=== PATIENT | female | born 1960 | race Caucasian/White ===

== ENCOUNTER 2016-08-27 06:26 | Inpatient (IN) | payer OTHER ==
[2016-07-29 14:35] LABS: BASO % 0.5 %; BASO ABS # 0.02 K/uL (0-0.2); COMPLETE YES; EOS % 1.6 %; HEMATOCRIT 38.3 % (37-47); LYMPH % 42.4 %; LYMPH ABS # 1.88 K/uL (1.2-3.4); MEAN CELL VOLUME 87.6 fL (80-100); MEAN CORPUSCULAR HEMOGLOBIN 30.4 pg (25-34); MEAN CORPUSCULAR HGB CONC 34.7 g/dl (32-36); MEAN PLATELET VOLUME 9.8 fL (7.4-10.4); MONO % 4.7 %; NEUT % 50.8 %; PLATELET COUNT 262 K/uL (130-400); RED BLOOD COUNT 4.37 M/uL (4.2-5.4); WHITE BLOOD COUNT 4.43 K/uL (4.8-10.8)
[2016-07-29 14:39] LABS: URINE APPEARANCE CLEAR (CLEAR); URINE BILIRUBIN NEG (NEG); URINE COLOR DK YELLOW; URINE NITRITE NEG (NEG); URINE PH 5.5 (4.5-7.5); URINE SPECIFIC GRAVITY 1.027 (1.000-1.030); UROBILINOGEN NEG (NEG); ZZUR CULT IF INDIC CLEAN CATCH NO
[2016-07-29 14:47] LABS: MANUAL MICROSCOPIC REQUIRED? NO; REVIEW REQ? NO
[2016-07-29 14:48] LABS: PARTIAL THROMBOPLASTIN RATIO 1.1; PROTHROMBIN TIME (PATIENT) 10.7 SECONDS (9.0-12.0)
[2016-07-29 15:16] LABS: BLOOD UREA NITROGEN 19 mg/dl (7-18); BUN/CREATININE RATIO 19.3 (10-20); CALCIUM 9.3 mg/dl (8.5-10.1); CARBON DIOXIDE 25 mmol/L (21-32); CHLORIDE 105 mmol/L (98-107); CREATININE 0.97 mg/dl (0.60-1.20); GLUCOSE 86 mg/dl (70-99); SODIUM 141 mmol/L (136-145)
[2016-08-21 15:23] VITALS: BMI 31.0
--- NOTE | 2016-08-26 18:24 | HISTORY & PHYSICAL EXAMINATION ---
DATE OF ADMISSION: 08/27/2016 CHIEF COMPLAINT: Chronic left knee pain. HISTORY OF PRESENT ILLNESS: This is a 56-year-old female, patient of Dr. Keller'angie complaining of chronic left knee pain, longstanding, now progressively getting worse. The patient has been diagnosed with end-stage osteoarthritis, per clinical and radiographic exams. The patient has failed conservative treatment including intraarticular injections, anti-inflammatories and the use of a brace as well as narcotic medication. The patient has increased pain with weightbearing activities and her pain does interfere with her activities of daily living. PAST MEDICAL HISTORY: The patient is a healthy 56-year-old female. She has no heart problems, lung problems, diabetes or cancer history. SOCIAL HISTORY: Nonsmoker, nondrinker. PAST SURGICAL HISTORY: Left shoulder surgery, back surgery, right shoulder surgery and right knee surgery. FAMILY HISTORY: Noncontributory. REVIEW OF SYSTEMS: The patient complains of chronic left knee pain, otherwise denies any shortness of breath, chest pain, nausea, vomiting or any other joint complaints. MEDICATIONS: Citalopram 40 mg daily. ALLERGIES: No known drug allergies. PHYSICAL EXAMINATION: GENERAL: Well-developed, well-nourished 56-year-old female in no acute distress. She is alert and oriented x3 and pleasant. HEENT: Normocephalic, atraumatic. Extraocular motions are intact. Pupils are equal and reactive to light. HEART: Regular rate and rhythm, no murmurs appreciated. LUNGS: Clear. ABDOMEN: Soft and nontender, bowel sounds are present. EXTREMITIES: Left knee reveals 0-130 degrees of range of motion. She has a neutral alignment. She has medial joint line tenderness with crepitation, with passive range of motion. Her knee is stable. She has 5/5 strength. NEUROLOGIC: Neurovascularly, she is intact in her left lower extremity. DIAGNOSIS: Left knee end-stage osteoarthritis. Otherwise, a healthy 56-year-old female with no heart, lungs or diabetes history. PLAN: The patient was advised of her diagnosis. Indications, risks, benefits, postop course have all been reviewed. The patient wishes to proceed with a left total knee arthroplasty. Necessary consent forms, preoperative testing and clearances will be obtained.
[~2016-08-27] VITALS: Ht 157.5 cm; Wt 83.0 kg
[2016-08-27] VITALS (7 sets, daily range): BP systolic 99–124; BP diastolic 61–81; PULSE 65–96; TEMP 36.5–36.6; O2SAT 93–98; Ht 157.5 cm; Wt 83.0 kg
[~2016-08-27 06:26] MED LIST: ACETAMINOPHEN 500 MG TAB PO SCH; CEFAZOLIN 1000MG/55 ML D5W 55 ML IV SCH; CITA40TA12 PO; CeleBREX 200 MG CAP PO SCH; DEXAMETHASONE 4 MG TAB PO SCH; FAMOTIDINE 20 MG TAB PO SCH; GABAPENTIN 300 MG CAP PO SCH; LACTATED RINGER'S 1000ML 1,000 ML IV SCH; LACTATED RINGER'S 1000ML 500 ML IV ONE; LACTATED RINGER'S 1000ML IV SCH; LAMO100T16 PO; METOCLOPRAMIDE HCL 10 MG TAB PO SCH; ROPIVACAINE 5MG/ML 30 ML 150 MG, BUPIVACAINE/EPINEPHR 0.5% MPF 30 ML, KETOROLAC TROMETH... INFIL SCH
--- NOTE | 2016-08-27 06:54 | History & Physical Bridge Note ---
H&P Re-Evaluation Bridge Note: I have examined the patient, reviewed the History & Physical and in the interval since the performance of the History & Physical I have noted the following changes of clinical significance: No changes noted
[2016-08-27] MEDS ORDERED: MIDAZOLAM HCL 1 MG/ML 2ML VIAL ONE (06:58)
[2016-08-27] MEDS ORDERED: FENTANYL CITRATE INJ 50 MCG/1 ML 2 ML VIAL ONE (06:59)
[2016-08-27] MEDS ORDERED: BUPIVACAINE 0.25% 30 ML VIAL ONE (07:22)
[2016-08-27] MEDS ORDERED: FENTANYL CITRATE INJ 50 MCG/1 ML 2 ML VIAL IV PRN (07:30)
[2016-08-27] MEDS ORDERED: EpHEDrine SULFATE INJ 50 MG/ML AMP IV PRN (07:30)
[2016-08-27] MEDS ORDERED: ATROPINE SULFATE 0.1 MG/ML 5ML SYR IV PRN (07:30)
[2016-08-27] MEDS ORDERED: ONDANSETRON INJ 2 MG/ML 2 ML VIAL IV PRN ×2 (07:30→11:45)
[2016-08-27] MEDS ORDERED: BUPIVACAINE 0.5 % 5 MG/1 ML PF 10ML VIAL ONE (08:55)
[2016-08-27] MEDS ORDERED: ORTHO JOINT ANESTHETIC ONE (09:01)
[2016-08-27] MEDS ORDERED: BACITRACIN 50000 UNIT VIAL ONE (09:01)
[2016-08-27] MEDS ORDERED: POVIDONE-IODINE OP SOLN 30 ML BTL ONE (09:01)
[2016-08-27] MEDS: TRANEXAMIC ACID INJ 1,000 MG in SODIUM CHLORIDE 0.9% 100ML 100 ML IV SCH ×2 (09:11→13:45)
--- NOTE | 2016-08-27 11:03 | [facility] Operative Report ---
Operative Report Operative Date Aug 27, 2016. Pre-Operative Diagnosis Left knee end-stage osteoarthritis Post-Operative Diagnosis same Procedure(s) Performed left total knee replacement Surgeon Dr. Keller Well Drill Operator Cable Tool Surgeon(s) Abhilash Reina PA-C Estimated Blood Loss 5CC Findings end stage djd varus grade 4 medial and grade 3 medial Specimens A: Left knee bone and tissue Drains 2 hemovac Anesthesia spinal sedation orthomix Complication(s) None Disposition Recovery Room / PACU Indications end stage djd oa bilateral knees I attest to the content of the Intraoperative Record and any orders documented therein. Any exceptions are noted below.
[2016-08-27] MEDS ORDERED: GLYCOPYRROLATE INJ 0.2 MG/ML VIAL ONE (11:18)
[2016-08-27] MEDS ORDERED: LIDOCAINE HCL 2% 2 ML VIAL (20MG/ML) ONE (11:18)
[2016-08-27] MEDS ORDERED: PROPOFOL IV EMULSION 10 MG/ML 20 ML VIAL IV ONE (11:18)
[2016-08-27] MEDS ORDERED: BACITRACIN 50,000 UNITS IR ONE (11:22)
[2016-08-27] MEDS ORDERED: MAGNESIUM HYDROXIDE SUSP 30 ML UDC PO PRN (11:45)
[2016-08-27] MEDS ORDERED: DiphenhydrAMINE HCL 50 MG/ML VIAL IV PRN (11:45)
[2016-08-27] MEDS ORDERED: MoRPHine SULFATE 2 MG/ML CARP IV PRN (11:45)
[2016-08-27] MEDS ORDERED: BISACODYL 10 MG SUPP PR PRN (11:45)
[2016-08-27] MEDS ORDERED: ALUMINUM/MAGNESIUM/SIMETH (MAALOX MAX) 30 ML UDC PO PRN (11:45)
[2016-08-27] MEDS ORDERED: ZOLPIDEM TARTRATE 5 MG TAB PO PRN (11:45)
--- NOTE | 2016-08-27 12:10 | DIAGNOSTIC IMAGING REPORT ---
LEFT KNEE 1 OR 2 VIEWS ROUTINE CLINICAL HISTORY: AP/LATERAL IN PACU LEFT KNEE joint replacement COMPARISON: None. DISCUSSION: Status post total left knee replacement. Good contact between prosthetic and underlying bone. Surgical drains are in position. Expected soft tissue postoperative change IMPRESSION: Anatomic alignment status post total left knee replacement Electronically signed by: Ronen Wayne M.D. 08/27/2016 12:09 PM Dictated Date/Time: 08/27/2016 12:09 PM
--- NOTE | 2016-08-27 12:55 | Anesthesiology Progress Note ---
Anesthesia Post Op Note Date & Time Aug 27, 2016 at 12:55 Vital Signs Pain Intensity: 0 Vital Signs Past 12 Hours Date Time Temp Pulse Resp B/P Pulse Ox O2 Delivery O2 Flow Rate FiO2 08/27/16 12:28 73 16 99 08/27/16 12:28 73 16 08/27/16 12:25 94/53 08/27/16 12:23 74 16 08/27/16 12:23 37.1 08/27/16 12:23 72 16 99 08/27/16 12:20 98/52 08/27/16 12:18 77 13 99 08/27/16 12:18 76 13 08/27/16 12:17 75 17 08/27/16 12:17 76 17 99 08/27/16 12:15 94/58 08/27/16 12:12 82 20 08/27/16 12:12 83 20 100 08/27/16 12:10 96/52 08/27/16 12:07 75 15 99 08/27/16 12:07 75 15 08/27/16 12:05 92/55 08/27/16 12:02 76 19 08/27/16 12:02 77 19 99 08/27/16 12:01 76 15 08/27/16 12:01 76 15 99 08/27/16 12:00 92/59 08/27/16 11:56 78 14 100 08/27/16 11:56 76 14 08/27/16 11:55 98/57 08/27/16 11:51 73 21 08/27/16 11:51 74 21 100 08/27/16 11:50 107/65 08/27/16 11:46 76 14 08/27/16 11:46 77 14 100 08/27/16 11:45 85/46 08/27/16 11:41 81 13 97/47 100 08/27/16 11:41 81 13 08/27/16 11:40 89/49 08/27/16 11:36 84 18 98/50 97 08/27/16 11:36 84 18 08/27/16 11:36 37.2 85 16 98/50 97 Mask 10 08/27/16 06:56 36.5 65 18 124/81 97 Room Air Notes Mental Status: alert / awake / arousable, participated in evaluation Pt Amnestic to Procedure: Yes Nausea / Vomiting: adequately controlled Pain: adequately controlled Airway Patency, RR, SpO2: stable & adequate BP & HR: stable & adequate Hydration State: stable & adequate Neuraxial Anesthesia: was administered, sensory block is resolving Anesthetic Complications: no major complications apparent
[2016-08-27] MEDS: D5W AND 1/2NSS + 20MEQ KCL 1,000 ML IV SCH ×2 (13:44→22:54)
[2016-08-27] MEDS: FERROUS GLUCONATE 324 MG TAB PO SCH ×2 (13:44→17:17)
[2016-08-27] MEDS ORDERED: MoRPHine SULFATE 4 MG/ML 1 ML CARP\\VIAL IV PRN (13:45)
[2016-08-27] MEDS ORDERED: MoRPHine SULFATE 10 MG/ML CARP/VIAL IV PRN (13:45)
[2016-08-27] MEDS: ACETAMINOPHEN 500 MG TAB PO SCH ×2 (13:56→21:28)
--- NOTE | 2016-08-27 13:57 | Medical Consult ---
Consultation Date of Consultation: Aug 27, 2016. Attending Physician: Lion Keller M.D. Reason for Consultation: medical mgmt History of Present Illness This is a 56 y/o female with PMHx as outlined below who presents POD 0 s/p L TKA performed by Dr. Keller. Pt is doing well postoperatively. She currently denies any pain. Pt denies chest pain, SOB, abd pain, N/V, bowel or bladder issues, LE edema, calf pain, lightheadedness/dizziness. Past Medical/Surgical History Medical Problems: (1) Depression Status: Chronic Surgical Problems: (1) History of back surgery Permanent Comment: fusion Status: Resolved (2) History of carpal tunnel surgery Status: Resolved (3) History of section Status: Resolved (4) History of tubal ligation Status: Resolved (5) Hx of repair of rotator cuff Permanent Comment: bilat Status: Resolved (6) Hx of total knee arthroplasty Permanent Comment: R side Status: Resolved Social History Smoking Status: Never Smoker Alcohol Use: none Drug Use: none Marital Status: Housing Status: lives with family Occupation Status: employed (dairy farmworker) Allergies Coded Allergies: No Known Allergies (Unverified , 08/27/16) Home Medications Active Reported Lamictal (Lamotrigine) 100 Mg Tab 100 Mg PO QAM Celexa (Citalopram Hydrobromide) 40 Mg Tab 40 Mg PO QAM Current Inpatient Medications Current Inpatient Medications Medications (Trade) Dose Ordered Sig/Jem Route Start Time Stop Time Status Last Admin Dose Admin Cefazolin Sodium (Ancef 1000mg/55 ml D5W) 55 ml @ 100 mls/hr PREOP IV 08/27/16 06:00 08/27/16 18:00 08/27/16 09:28 100 MLS/HR Acetaminophen (Tylenol Tab) 1,000 mg PREOP PO 08/27/16 06:00 08/27/16 18:00 08/27/16 07:18 1,000 MG Celecoxib (CeleBREX CAP) 200 mg PREOP PO 08/27/16 06:00 08/27/16 18:00 08/27/16 07:17 200 MG Dexamethasone (Decadron Tab) 8 mg PREOP PO 08/27/16 06:00 08/27/16 18:00 08/27/16 07:19 8 MG Famotidine (Pepcid Tab) 20 mg PREOP PO 08/27/16 06:00 08/27/16 18:00 08/27/16 07:17 20 MG Gabapentin (Neurontin Cap) 600 mg PREOP PO 08/27/16 06:00 08/27/16 18:00 08/27/16 07:18 600 MG Metoclopramide HCl 10 mg 10 mg PREOP PO 08/27/16 06:00 08/27/16 18:00 08/27/16 07:17 10 MG Tranexamic Acid/ Sodium Chloride (Cyklokapron Inj/ Nss 100ml) 110 ml @ 660 mls/hr TODAY@06,0630 IV 08/27/16 06:00 08/27/16 18:00 08/27/16 09:11 660 MLS/HR Citalopram Hydrobromide (celeXA TAB) 40 mg QAM PO 08/28/16 09:00 09/27/16 08:59 Lamotrigine (Lamictal Tab) 100 mg QAM PO 08/28/16 09:00 09/27/16 08:59 Morphine Sulfate 2 mg 2 mg Q4HWA PRN IV 08/27/16 11:45 09/10/16 11:44 Potassium Chloride/Dextrose/ Sod Cl 1,000 ml @ 100 mls/hr Q10H IV 08/27/16 13:30 08/28/16 13:29 Cefazolin Sodium/ Dextrose (Ancef Iv/D5 50ml) 60 ml @ 100 mls/hr Q8H IV 08/27/16 17:00 08/28/16 01:35 Ketorolac Tromethamine (Toradol Inj) 30 mg Q6 IV. 08/27/16 18:00 08/28/16 17:59 Oxycodone HCl (Roxicodone Immediate Rel Tab) 1 TABLET FOR PAIN RATING... Q4H PRN PO 08/27/16 11:45 09/10/16 11:44 Oxycodone HCl (Oxycontin Tab) 10 mg Q12 PO 08/27/16 21:00 09/10/16 20:59 Acetaminophen (Tylenol Tab) 1,000 mg Q8 PO 08/27/16 14:00 09/26/16 11:44 Magnesium Hydroxide (Milk Of Magnesia Susp) 30 ml Q6H PRN PO 08/27/16 11:45 09/26/16 11:44 Bisacodyl (Dulcolax Supp) 10 mg DAILY PRN TX 08/27/16 11:45 09/26/16 11:44 Senna (Senokot Tab) 17.2 mg HS PO 08/27/16 21:00 09/26/16 20:59 Docusate Sodium (coLACE CAP) 100 mg BID PO 08/27/16 21:00 09/26/16 20:59 Diphenhydramine HCl (Benadryl Inj) 25 mg Q8H PRN IV 08/27/16 11:45 09/26/16 11:44 Al Hydrox/Mg Hydrox/Simethicone (Maalox Max Susp) 15 ml Q4H PRN PO 08/27/16 11:45 09/26/16 11:44 Zolpidem Tartrate (Ambien Tab) 5 mg HSZ PRN PO 08/27/16 11:45 09/26/16 11:44 Multivitamins (Multivitamin Tab) 1 tab QAM PO 08/28/16 09:00 09/27/16 08:59 Ondansetron HCl (Zofran Inj) 4 mg Q6H PRN IV 08/27/16 11:45 09/26/16 11:44 Ferrous Gluconate (Ferrous Gluconate Tab) 324 mg TIDM PO 08/27/16 12:00 09/26/16 11:59 Pantoprazole Sodium (Protonix Tab) 40 mg QAM PO 08/28/16 09:00 09/27/16 08:59 Aspirin (Ecotrin Tab) 81 mg BID PO 08/27/16 21:00 09/26/16 20:59 Morphine Sulfate (MoRPHine SULFATE INJ) 4 mg Q4HWA PRN IV 08/27/16 13:45 09/10/16 13:44 Morphine Sulfate (MoRPHine SULFATE INJ) 6 mg Q4HWA PRN IV 08/27/16 13:45 09/10/16 13:44 Review of Systems Constitutional: No chills, No fatigue, No fever, No sweats, No weakness Eyes: No worsening of vision Respiratory: No cough, No shortness of breath Cardiovascular: No chest pain, No claudication, No edema Abdomen: No constipation, No diarrhea, No nausea, No pain, No vomiting Musculoskeletal: No calf pain, No swelling Genitourinary - Female: No dysuria Neurologic: No weakness Psychiatric: No depression symptoms Endocrine: No fatigue Hematologic / Lymphatic: No abnormal bleeding/bruising Integumentary: No new/changing skin lesions Physical Exam Date Time Temp Pulse Resp B/P Pulse Ox O2 Delivery O2 Flow Rate FiO2 08/27/16 12:40 Nasal Cannula 2.0 08/27/16 12:40 36.5 74 16 104/62 98 Nasal Cannula 2.0 08/27/16 12:40 98 Nasal Cannula 2.0 08/27/16 12:28 73 16 99 08/27/16 12:28 73 16 08/27/16 12:25 94/53 08/27/16 12:23 74 16 08/27/16 12:23 37.1 08/27/16 12:23 72 16 99 08/27/16 12:20 98/52 08/27/16 12:18 77 13 99 08/27/16 12:18 76 13 08/27/16 12:17 75 17 08/27/16 12:17 76 17 99 08/27/16 12:15 94/58 08/27/16 12:12 82 20 08/27/16 12:12 83 20 100 08/27/16 12:10 96/52 08/27/16 12:07 75 15 99 08/27/16 12:07 75 15 08/27/16 12:05 92/55 08/27/16 12:02 76 19 08/27/16 12:02 77 19 99 08/27/16 12:01 76 15 08/27/16 12:01 76 15 99 08/27/16 12:00 92/59 08/27/16 11:56 78 14 100 08/27/16 11:56 76 14 08/27/16 11:55 98/57 08/27/16 11:51 73 21 08/27/16 11:51 74 21 100 08/27/16 11:50 107/65 08/27/16 11:46 76 14 08/27/16 11:46 77 14 100 08/27/16 11:45 85/46 08/27/16 11:41 81 13 97/47 100 08/27/16 11:41 81 13 08/27/16 11:40 89/49 08/27/16 11:36 84 18 98/50 97 08/27/16 11:36 84 18 08/27/16 11:36 37.2 85 16 98/50 97 Mask 10 08/27/16 06:56 36.5 65 18 124/81 97 Room Air General Appearance: WD/WN, no apparent distress, + pertinent finding (Pt is laying in bed with at bedside ) Head: normocephalic, atraumatic Eyes: normal inspection ENT: hearing grossly normal Neck: supple Respiratory/Chest: chest non-tender, lungs clear, normal breath sounds, no respiratory distress Cardiovascular: regular rate, rhythm, no edema, no murmur Abdomen/GI: normal bowel sounds, non tender, soft Back: normal inspection Extremities/Musculoskelatal: no calf tenderness, no pedal edema, + pertinent finding (surgical dressing in place over L knee) Neurologic/Psych: alert, normal mood/affect, oriented x 3 Skin: normal color, warm/dry Assessment & Plan L KNEE DJD S/P L TKA -POD 0; surgery performed by Dr. Keller -post-operative pain well managed -monitor for acute blood loss with daily H&H -pt encouraged to utilize spirometry to prevent post-op infection -PT/OT -activity and wound care orders per ortho protocol -will continue to follow DEPRESSION -stable -cont Lamictal and Celexa DVT PROPHYLAXIS -per ortho protocol CODE STATUS -FULL CODE status DISPO -per ortho. Pt seen in collaboration with Dr. Clayton. Please see her addendum for further details. Thanks! -Of note: patient will be followed by Dr. Benito starting tomorrow AM Thank you for this consultation. We will follow the patient with you during their hospital stay. You can reach a member of the [facility] Hospitalist Team 12/01 via pager @ . ADDENDUM: I have seen and examined the patient and have discussed the case with the provider above. I agree with the assessment and plan as stated. Pt is pain-free and tolerating PO. Left lower extremity is NVI. Cont as above. DO Forrest
[2016-08-27] MEDS: CEFAZOLIN IV 2,000 MG in DEXTROSE 5% 50ML 50 ML IV SCH (17:16)
[2016-08-27] MEDS: KETOROLAC TROMETHAMINE 30 MG/ML VIAL IV. SCH ×2 (18:41→23:29)
--- NOTE | 2016-08-27 20:20 | OPERATIVE REPORT ---
DATE OF OPERATION: 08/27/2016 INDICATION FOR PROCEDURE: The patient is a 56-year-old female who suffers from bilateral knee osteoarthritis. She has severe left knee osteoarthritis, medial compartment. She has a varus knee, has bone on bone, and now presents for knee replacement. PREOPERATIVE DIAGNOSIS: End-stage osteoarthritis, left knee. POSTOPERATIVE DIAGNOSIS: Same. PROCEDURE: Left total knee arthroplasty. SURGEON: Dr. Keller. PLANT SECURITY GUARD: VALERIE Piedra. ANESTHESIA: Spinal IV sedation and Orthomix. OPERATIVE PROCEDURE: The patient taken to the operating room, anesthetized under anesthesia as dictated. Pneumatic tourniquet was placed about her obese upper thigh. Left lower extremity was prepped and draped in the usual sterile fashion using ChloraPrep. Knee exam demonstrates she did have some pseudolaxity medially. She had a varus knee. Left lower extremity was then elevated, exsanguinated with Esmarch bandage. Pneumatic tourniquet was raised to 325 mmHg. Anterior incision made across the left knee. Skin was incised sharply. Subcutaneous flaps were elevated. Incision was made through medial retinaculum and extended up to the mid third of the quadriceps tendon and extended down to the medial tibial tubercle. Intraarticular findings demonstrated grade 4 medial compartment OA, some bone loss. She had intact cruciate ligaments. She had grade 3 patellofemoral chondromalacia. I used the Cee \T\ Nephew Journey 2.0 total knee arthroplasty system, using Applifieraire MRI templating. The femur sized for a 5 and tibia for a 3 component. To expose the knee, the infrapatellar fat pad was resected. Some of the fat pad over the anterior femur was resected for placement of the component in that area. Lateral synovial bands were released. The cruciate ligaments were resected. The meniscal remnants were resected. We did subperiosteal releases around the medial tibial plateau and the posterior medial corner to balance the ligaments. No releases were performed laterally. With the femur exposed, the custom femoral cutting block was pinned in position and the distal femoral cut was made. The 5-1 cutting block was placed. Anterior, posterior, and chamfer cuts were made. The knee was extended and subperiosteal peel lateral release was performed around the patella. The patella width was measured and width was reproduced using a freehand cut technique for a 32 patellar component. Drill holes were made and the excess lateral facet was beveled off to prevent any impingement. The tibia was then subluxed. The custom tibial cutting block was pinned in position. The proximal tibial cut was made with the oscillating saw. There was a cyst that was curetted out of the proximal tibial plateau and the sclerotic area medially, had drill holes placed for cement fixation improvement. Lamina bag end sewer was used to ensure ligamentous balance in extension and flexion. Then, the tibia was re-exposed and the 3 tibial trial was externally rotated in line with the tibial tubercle, pinned in position. The punch for stem was used. Then, the 5 femoral trial was centered, inserted, and notch cutting devices were used. A collet was placed. A 12 poly insert gave balanced ligaments through full range of motion and patella tracked centrally. Trials were removed. The Orthomix was injected per protocol. The knee was copiously irrigated with pulsatile lavage antibiotic solution and bacitracin. The final components were cemented with Simplex G cement. The final components were the 5 Oxinium posterior stabilized Cee \T\ Nephew Journey 2.0 femur, the 3 primary tibial baseplate, the 12 mm posterior stabilized poly insert and 32 mm patella. All cement cured. Betadine soak was used per protocol. Then, the knee was copiously irrigated with antibiotic solution and bacitracin. Two drains were brought out laterally. Quadriceps tendon and medial retinaculum were closed with interrupted [id number] #1 Vicryl sutures. Subcutaneous tissues closed with interrupted 2-0 Polysorb sutures. Skin was closed with fernando. Sterile dressings were applied and the tourniquet was let down. The patient tolerated the procedure well. VALERIE Piedra, was my pest controller assistant. He functioned as pest controller assistant during the procedure where he did leg positioning as necessary, soft tissue retraction, instrument management, and did the fascial, subcutaneous and skin closure, and will participate in postop care of the patient. I attest to the content of the Intraoperative Record and any orders documented therein. Any exceptio ns are noted below.
[2016-08-27] MEDS: SENNA 8.6 MG TAB PO SCH (21:26)
[2016-08-27] MEDS: OXYCODONE HCL 10 MG TABCR (OXYCONTIN) PO SCH (21:26)
[2016-08-27] MEDS: ASPIRIN 81 MG ECTAB PO SCH (21:27)
[2016-08-27] MEDS: DOCUSATE SODIUM 100 MG CAP PO SCH (21:27)
[2016-08-27] MEDS: OXYCODONE HCL IR 5 MG TAB (IMMEDIATE RELEASE) PO PRN (22:54)
[2016-08-28] MEDS: CEFAZOLIN IV 2,000 MG in DEXTROSE 5% 50ML 50 ML IV SCH (01:11)
[2016-08-28 03:30] VITALS: BP 116/64; PULSE 72; TEMP 36.4; O2SAT 96
[2016-08-28] MEDS: KETOROLAC TROMETHAMINE 30 MG/ML VIAL IV. SCH ×2 (05:43→12:01)
[2016-08-28] MEDS: ACETAMINOPHEN 500 MG TAB PO SCH ×3 (05:43→20:59)
[2016-08-28 05:50] LABS: HEMATOCRIT 30.2 % (37-47); MEAN CELL VOLUME 85.1 fL (80-100); MEAN CORPUSCULAR HGB CONC 34.1 g/dl (32-36); MEAN PLATELET VOLUME 9.6 fL (7.4-10.4); PLATELET COUNT 246 K/uL (130-400); RED BLOOD COUNT 3.55 M/uL (4.2-5.4); WHITE BLOOD COUNT 12.07 K/uL (4.8-10.8)
[2016-08-28 06:16] LABS: BUN/CREATININE RATIO 13.3 (10-20); CALCIUM 8.6 mg/dl (8.5-10.1); CREATININE 0.95 mg/dl (0.60-1.20); POTASSIUM 4.5 mmol/L (3.5-5.1)
[2016-08-28] MEDS: OXYCODONE HCL IR 5 MG TAB (IMMEDIATE RELEASE) PO PRN ×3 (07:34→23:31)
[2016-08-28 07:54] VITALS: BP 112/76; PULSE 74; TEMP 36.7; O2SAT 96
--- NOTE | 2016-08-28 08:03 | Orthopedic Progress Note ---
Orthopedic Progress Note Date of Service Aug 28, 2016. Subjective Post OP Day: 1 Reports: feeling well, pain controlled w PO medications, Denies: SOB, calf pain , chest pain, complaints, light headedness, nausea / vomiting Objective calves soft nontender, N/V intact, capillary refill less than 2 sec., dressing C /D/I, A&O x3, toes mobile Date Time Temp Pulse Resp B/P Pulse Ox O2 Delivery O2 Flow Rate FiO2 08/28/16 07:54 36.7 74 20 112/76 96 Room Air 08/28/16 07:05 Room Air 08/28/16 03:30 36.4 72 16 116/64 96 Room Air 08/27/16 23:31 Room Air 08/27/16 23:30 36.6 71 18 116/64 96 Room Air 08/27/16 19:50 36.6 85 16 119/72 94 Room Air 08/27/16 16:05 Room Air 08/27/16 15:48 36.6 82 16 99/61 93 Room Air 08/27/16 14:33 96 16 116/73 97 2.0 08/27/16 13:48 84 16 119/73 95 08/27/16 12:40 Nasal Cannula 2.0 08/27/16 12:40 36.5 74 16 104/62 98 Nasal Cannula 2.0 08/27/16 12:40 98 Nasal Cannula 2.0 08/27/16 12:28 73 16 99 08/27/16 12:28 73 16 08/27/16 12:25 94/53 08/27/16 12:23 74 16 08/27/16 12:23 37.1 08/27/16 12:23 72 16 99 08/27/16 12:20 98/52 08/27/16 12:18 77 13 99 08/27/16 12:18 76 13 08/27/16 12:17 75 17 08/27/16 12:17 76 17 99 08/27/16 12:15 94/58 08/27/16 12:12 82 20 08/27/16 12:12 83 20 100 08/27/16 12:10 96/52 08/27/16 12:07 75 15 99 08/27/16 12:07 75 15 08/27/16 12:05 92/55 08/27/16 12:02 76 19 3/8/17 12:02 77 19 99 08/27/16 12:01 76 15 08/27/16 12:01 76 15 99 08/27/16 12:00 92/59 08/27/16 11:56 78 14 100 08/27/16 11:56 76 14 08/27/16 11:55 98/57 08/27/16 11:51 73 21 08/27/16 11:51 74 21 100 08/27/16 11:50 107/65 08/27/16 11:46 76 14 08/27/16 11:46 77 14 100 08/27/16 11:45 85/46 08/27/16 11:41 81 13 97/47 100 08/27/16 11:41 81 13 08/27/16 11:40 89/49 08/27/16 11:36 84 18 98/50 97 08/27/16 11:36 84 18 08/27/16 11:36 37.2 85 16 98/50 97 Mask 10 Laboratory Results 24 Hours: Test 08/28/16 05:07 Hematocrit 30.2 % Hemoglobin 10.3 g/dL Assessment & Plan Assessment: POD #1, Left TKA Plan: PT/ OT DVT proph- ASA D/C planning- Home w Appreciate medicine input. Inhouse Planning Pain Management: Oxycontin, Morphine, PO Tylenol, Oxy IR DVT Prophylaxis: TEDs, SCDs, ASA Discharge Planning Discharge Planning: home with home health Pain Management: Oxycontin, PO Tylenol, Oxy IR DVT Prophylaxis: TEDs, ASA Therapy: Physical Therapy, Occupational Therapy
--- NOTE | 2016-08-28 08:55 | Progress Note ---
Medicine Progress Note Date & Time of Visit: Aug 28, 2016 at 08:45. (Zoraida Vazquez PA-C) Subjective Pt seen and examined. She continues to do well on POD#1 s/p L TKA by Dr. Keller. States pain is controlled with medications. Has ambulated to restroom and plans to do PT this morning. Tolerating PO. No BM yet after surgery but passing flatus. Voiding without issues. Denies dizziness, chest pain, SOB, N/V, calf pain, edema. (Zoraida Vazquez PA-C) Patient is doing well. Pain has been tolerable. Denies any nausea/vomiting. (Trevor Benito MD) Objective Last 8 Hrs Date Time Temp Pulse Resp B/P Pulse Ox O2 Delivery O2 Flow Rate FiO2 08/28/16 07:54 36.7 74 20 112/76 96 Room Air 08/28/16 07:05 Room Air 08/28/16 03:30 36.4 72 16 116/64 96 Room Air Physical Exam: General-pleasant alert 56 year old female, lying in bed, no distress Eyes-anicteric ENT-hearing intact Neck-supple, trachea midline Lungs-CTA bilaterally, no respiratory distress Heart-RRR, no murmur Abdomen-soft, nontender, normal bowel sounds Extremities-s/p left TKA, dressing/ ice pack in place, drain in place with sanguinous drainage, SCD's in place, no calf tenderness Neuro-alert, oriented x 3, affect normal, grossly nonfocal Laboratory Results: Last 24 Hours Test 08/28/16 05:07 White Blood Count 12.07 K/uL Red Blood Count 3.55 M/uL Hemoglobin 10.3 g/dL Hematocrit 30.2 % Mean Corpuscular Volume 85.1 fL Mean Corpuscular Hemoglobin 29.0 pg Mean Corpuscular Hemoglobin Concent 34.1 g/dl RDW Standard Deviation 38.1 fL RDW Coefficient of Variation 12.3 % Platelet Count 246 K/uL Mean Platelet Volume 9.6 fL Sodium Level 140 mmol/L Potassium Level 4.5 mmol/L Chloride Level 107 mmol/L Carbon Dioxide Level 23 mmol/L Anion Gap 10.0 mmol/L Blood Urea Nitrogen 13 mg/dl Creatinine 0.95 mg/dl Est Creatinine Clear Calc Drug Dose 64.5 ml/min Estimated GFR () 76.5 Estimated GFR (Non- 66.0 BUN/Creatinine Ratio 13.3 Random Glucose 152 mg/dl Calcium Level 8.6 mg/dl (Zoraida Vazquez, PAHenrietta) Assessment & Plan L KNEE DJD S/P L TKA POD #[address] Keller Doing well on pain control regimen ordered by ortho Continue bowel regimen Wound care and activity as per ortho Continue to monitor for acute blood loss with daily H/H (Hg 13.3 -> 10.3) Continue use of incentive spirometry PT/ OT DEPRESSION Continue Lamictal and Celexa DVT PROPHYLAXIS Per ortho DISPO Per ortho Patient seen in collaboration with Dr. Benito. Please see his addendum. Thank you for this consultation. We will follow the patient with you during their hospital stay. You can reach a member of the [facility] Hospitalist Team 12/01 via pager @ . Current Inpatient Medications: Current Inpatient Medications Medications (Trade) Dose Ordered Sig/Jem Route Start Time Stop Time Status Last Admin Dose Admin Citalopram Hydrobromide (celeXA TAB) 40 mg QAM PO 08/28/16 09:00 09/27/16 08:59 Lamotrigine (Lamictal Tab) 100 mg QAM PO 08/28/16 09:00 09/27/16 08:59 Morphine Sulfate 2 mg 2 mg Q4HWA PRN IV 08/27/16 11:45 09/10/16 11:44 Potassium Chloride/Dextrose/ Sod Cl (D5W And 1/2nss + 20meq KCl) 1,000 ml @ 100 mls/hr Q10H IV 08/27/16 13:30 08/28/16 13:29 08/27/16 22:54 100 MLS/HR Ketorolac Tromethamine (Toradol Inj) 30 mg Q6 IV. 08/27/16 18:00 08/28/16 17:59 08/28/16 05:43 30 MG Oxycodone HCl (Roxicodone Immediate Rel Tab) 1 TABLET FOR PAIN RATING... Q4H PRN PO 08/27/16 11:45 09/10/16 11:44 08/28/16 07:34 5 MG Oxycodone HCl (Oxycontin Tab) 10 mg Q12 PO 08/27/16 21:00 09/10/16 20:59 08/27/16 21:26 10 MG Acetaminophen (Tylenol Tab) 1,000 mg Q8 PO 08/27/16 14:00 09/26/16 11:44 08/28/16 05:43 1,000 MG Magnesium Hydroxide (Milk Of Magnesia Susp) 30 ml Q6H PRN PO 08/27/16 11:45 09/26/16 11:44 Bisacodyl (Dulcolax Supp) 10 mg DAILY PRN PA 08/27/16 11:45 09/26/16 11:44 Senna (Senokot Tab) 17.2 mg HS PO 08/27/16 21:00 09/26/16 20:59 08/27/16 21:26 17.2 MG Docusate Sodium (coLACE CAP) 100 mg BID PO 08/27/16 21:00 09/26/16 20:59 08/27/16 21:27 100 MG Diphenhydramine HCl (Benadryl Inj) 25 mg Q8H PRN IV 08/27/16 11:45 09/26/16 11:44 Al Hydrox/Mg Hydrox/Simethicone (Maalox Max Susp) 15 ml Q4H PRN PO 08/27/16 11:45 09/26/16 11:44 Zolpidem Tartrate (Ambien Tab) 5 mg HSZ PRN PO 08/27/16 11:45 09/26/16 11:44 Multivitamins (Multivitamin Tab) 1 tab QAM PO 08/28/16 09:00 09/27/16 08:59 Ondansetron HCl (Zofran Inj) 4 mg Q6H PRN IV 08/27/16 11:45 09/26/16 11:44 Ferrous Gluconate (Ferrous Gluconate Tab) 324 mg TIDM PO 08/27/16 12:00 09/26/16 11:59 08/27/16 17:17 324 MG Pantoprazole Sodium (Protonix Tab) 40 mg QAM PO 08/28/16 09:00 09/27/16 08:59 Aspirin (Ecotrin Tab) 81 mg BID PO 08/27/16 21:00 09/26/16 20:59 08/27/16 21:27 81 MG Morphine Sulfate (MoRPHine SULFATE INJ) 4 mg Q4HWA PRN IV 08/27/16 13:45 09/10/16 13:44 Morphine Sulfate (MoRPHine SULFATE INJ) 6 mg Q4HWA PRN IV 08/27/16 13:45 09/10/16 13:44 (Zoraida Vazquez PA-C) Patient seen & examined at bedside. H/H is stable. Clinically and hemodynamically stable. Discharge plan as per the surgical team. Trevor Benito MD (Trevor Benito MD)
[2016-08-28] MEDS: MULTIVITAMIN TAB PO SCH (08:58)
[2016-08-28] MEDS: CITALOPRAM 40 MG TAB PO SCH (08:58)
[2016-08-28] MEDS: DOCUSATE SODIUM 100 MG CAP PO SCH ×2 (08:59→20:57)
[2016-08-28] MEDS: ASPIRIN 81 MG ECTAB PO SCH ×2 (08:59→20:57)
[2016-08-28] MEDS: PANTOprazole SOD 40 MG TAB PO SCH (09:00)
[2016-08-28] MEDS: FERROUS GLUCONATE 324 MG TAB PO SCH ×3 (09:00→17:05)
[2016-08-28] MEDS: OXYCODONE HCL 10 MG TABCR (OXYCONTIN) PO SCH ×2 (09:01→20:56)
[2016-08-28] MEDS: D5W AND 1/2NSS + 20MEQ KCL 1,000 ML IV SCH (09:02)
--- NOTE | 2016-08-28 10:03 | Anesthesiology Progress Note ---
Anesthesia Post Op Note Date & Time Aug 28, 2016 at 10:03 Vital Signs Pain Intensity: 3.0 Vital Signs Past 12 Hours Date Time Temp Pulse Resp B/P Pulse Ox O2 Delivery O2 Flow Rate FiO2 08/28/16 07:54 36.7 74 20 112/76 96 Room Air 08/28/16 07:05 Room Air 08/28/16 03:30 36.4 72 16 116/64 96 Room Air 08/27/16 23:31 Room Air 08/27/16 23:30 36.6 71 18 116/64 96 Room Air Notes Mental Status: alert / awake / arousable, participated in evaluation Pt Amnestic to Procedure: Yes Nausea / Vomiting: adequately controlled Pain: adequately controlled Airway Patency, RR, SpO2: stable & adequate BP & HR: stable & adequate Hydration State: stable & adequate Neuraxial Anesthesia: sensory block resolved Anesthetic Complications: no major complications apparent
[2016-08-28 15:13] VITALS: BP 102/62; PULSE 66; TEMP 36.8; O2SAT 97
[2016-08-28] MEDS ORDERED: NURSING VERBAL MED ORDER ONE ×2 (18:15→18:45)
[2016-08-28] MEDS: SENNA 8.6 MG TAB PO SCH (20:56)
[2016-08-28 23:31] VITALS: BP 122/61; PULSE 76; TEMP 36.7; O2SAT 96
[2016-08-29] MEDS: ACETAMINOPHEN 500 MG TAB PO SCH (05:40)
[2016-08-29] MEDS: OXYCODONE HCL IR 5 MG TAB (IMMEDIATE RELEASE) PO PRN ×2 (05:42→10:57)
[2016-08-29 05:55] LABS: HEMATOCRIT 29.1 % (37-47); MEAN CELL VOLUME 88.4 fL (80-100); MEAN CORPUSCULAR HEMOGLOBIN 29.5 pg (25-34); MEAN CORPUSCULAR HGB CONC 33.3 g/dl (32-36); MEAN PLATELET VOLUME 9.5 fL (7.4-10.4); PLATELET COUNT 215 K/uL (130-400); RED BLOOD COUNT 3.29 M/uL (4.2-5.4); WHITE BLOOD COUNT 6.01 K/uL (4.8-10.8)
[2016-08-29 06:22] VITALS: BP 111/69; PULSE 65; TEMP 36.6; O2SAT 96
[2016-08-29] MEDS: MULTIVITAMIN TAB PO SCH (07:56)
[2016-08-29] MEDS: DOCUSATE SODIUM 100 MG CAP PO SCH (07:56)
[2016-08-29] MEDS: ASPIRIN 81 MG ECTAB PO SCH (07:56)
[2016-08-29] MEDS: CITALOPRAM 40 MG TAB PO SCH (07:56)
[2016-08-29] MEDS: FERROUS GLUCONATE 324 MG TAB PO SCH (07:56)
[2016-08-29] MEDS: PANTOprazole SOD 40 MG TAB PO SCH (07:56)
[2016-08-29] MEDS: OXYCODONE HCL 10 MG TABCR (OXYCONTIN) PO SCH (07:59)
[2016-08-29 08:04] VITALS: BP 126/70; PULSE 73; TEMP 36.6; O2SAT 97
--- NOTE | 2016-08-29 08:34 | Orthopedic Progress Note ---
Orthopedic Progress Note Date of Service Aug 29, 2016. Subjective Post OP Day: 2 Reports: feeling well, pain controlled w PO medications, Denies: SOB, calf pain , chest pain, complaints, light headedness, nausea / vomiting Objective calves soft nontender, N/V intact, capillary refill less than 2 sec., dressing C /D/I, A&O x3, toes mobile Silverlon in tact Date Time Temp Pulse Resp B/P Pulse Ox O2 Delivery O2 Flow Rate FiO2 08/29/16 08:04 36.6 73 16 126/70 97 Room Air 08/29/16 06:22 36.6 65 16 111/69 96 Room Air 08/28/16 23:31 36.7 76 16 122/61 96 Room Air 08/28/16 23:30 Room Air 08/28/16 16:30 Room Air 08/28/16 15:13 36.8 66 16 102/62 97 Room Air Laboratory Results 24 Hours: Test 08/29/16 05:06 Hematocrit 29.1 % Hemoglobin 9.7 g/dL Assessment & Plan Assessment: POD #2, Left TKA Plan: PT/ OT DVT proph- ASA D/C planning- Home w HH today Appreciate medicine input. Inhouse Planning Pain Management: Oxycontin, Morphine, PO Tylenol, Oxy IR DVT Prophylaxis: TEDs, SCDs, ASA Discharge Planning Discharge Planning: home with home health Pain Management: Oxycontin, PO Tylenol, Oxy IR DVT Prophylaxis: TEDs, ASA Therapy: Physical Therapy, Occupational Therapy
[2016-08-29] MEDS ORDERED: OXYSR10 PO (08:37)
[2016-08-29] MEDS ORDERED: ACET-1138 PO (08:37)
[2016-08-29] MEDS ORDERED: ASPEC81 PO (08:37)
[2016-08-29] MEDS ORDERED: ONDA8TAB6 PO (08:37)
[2016-08-29] MEDS ORDERED: RXC5 PO (08:37)
--- NOTE | 2016-08-29 08:39 | Discharge Instructions ---
Discharge Instructions Date of Service Aug 29, 2016. Admission Reason for Admission: Left Knee Degenerative Joint Disease Discharge Discharge Diagnosis / Problem: Left TKA Discharge Goals Goal(s): Improve function Activity Recommendations Activity Limitations: as noted below . Instructions / Follow-Up Instructions / Follow-Up ACTIVITY RECOMMENDATIONS: SELF CARE INSTRUCTIONS AFTER TOTAL KNEE REPLACEMENT A. You may need to continue a physical therapy program after discharge from the hospital. There are several options available to you. Your doctor will assist you in selecting the best one for you. 1. An out-patient facility 2 to 3 times a week for therapy or home therapy. 2. Continue working on all exercises taught to you in the hospital. Your goals should be to increase bending of your knee to 90 degrees and beyond and to fully straighten your knee. B. You may progress at your own pace from walking with a walker or crutches to a cane; then to no assistive devices. C. Make walking a part of your daily routine. Be up as much as comfortable with rest periods throughout the day. Rest with leg elevation is very important. Use the ice wrap frequently for the first 3-4 weeks. D. There are no restrictions on activities. You may ride in a car, shop, participate in package sealer machine and all social activities. E. Wear the long elastic stockings (JANELL hose) 20 hours a day for 2 weeks after surgery. They can be removed several times a day for laundering and for a bath. F. You may shower, no tub baths until cleared by your doctor. SPECIAL CARE INSTRUCTIONS: VERY IMPORTANT TO READ AND REVIEW A. There are a few signs you need to watch for after you are home. Call [facility] if you notice any of the followin. Increased severe knee pain. Some pain is expected especially when you exercise. 2. Increased swelling in your leg or knee; pain or swelling of the calf muscle in either lower leg. 3. Any fluid drainage from the incision. 4. Shortness of breath or chest pain. B. Please call [facility] at if you have any concerns or questions about your operation or recovery. The doctor or his nurse will return your call promptly. C. You must take antibiotics before dental work, bladder, bowel or other surgery. Your doctor will provide you with a permanent care to carry describing this precaution. IMPORTANT: * REMEMBER TO TAKE ASPIRIN, 81 MG, TWICE DAILY FOR 4 WEEKS UNLESS OTHERWISE DIRECTED. THIS IS YOUR BLOOD THINNER. * HIGH RISK PATIENTS MAY BE PRESCRIBED A STRONGER BLOOD THINNER. THIS WILL BE PROVIDED AT DISCHARGE. * CALL IF INCREASED PAIN, REDNESS, DRAINAGE OR FEVER GREATER THAT 101. * WEAR JANELL HOSE 20 HOURS PER DAY FOR 2 WEEKS. * YOU MAY HAVE A LARGE BAND-AID LIKE DRESSING (SILVERON). THIS WILL REMAIN ON YOUR INCISION FOR 7 DAYS, THEN CAN BE REMOVED. IF INCISION IS LEAKING THROUGH DRESSING, CALL THE OFFICE . FOLLOW UP VISIT: If appointment is not already scheduled: Please call [facility] to make a follow-up appointment for 2 weeks after your surgery at . Current Hospital Diet Patient's current hospital diet: Regular Diet Discharge Diet Recommended Diet: Regular Diet Procedures Procedures Performed: Left total knee arthroplasty Pending Studies Studies pending at discharge: no Medical Emergencies . Who to Call and When: Medical Emergencies: If at any time you feel your situation is an emergency, please call [phone] immediately. . Non-Emergent Contact Non-Emergency issues call your: Primary Care Provider . "Provider Documentation" section prepared by Ronen Adkins. VTE Core Measure Inpt VTE Proph given/why not?: Other Anticoagulation (asa), Aura Okeefe, SCD's [place] Drug Monitoring Program Search Results: patient reviewed within database, no issues identified
--- NOTE | 2016-08-29 09:06 | ORTHOPEDIC PROGRESS NOTE ---
DATE: 08/29/2016 DATE: 08/29/2016. SUBJECTIVE: I was called to the floor by Ronen Adkins PA-C, who stated that nursing was having difficulty getting the drain out of her left knee. The patient was not experiencing any excruciating pain at the time and Mr. Adkins attempted to get the drain out, but it was not coming out. Currently, the patient was walking the hallways and was not experiencing any overt pain. She then came into her room and laid down on her bed. OBJECTIVE: On examination of the left knee, her dressing is intact and her drain was seen coming out of the superior lateral aspect of the knee. I was able to identify the 2 black grajeda on each drain tubing that denote how far the drain tubing is in the knee and while in extension I attempted to do a gentle tug on the drain which was not coming out. She did not experience any excruciating pain while I was pulling on this. At that point in time the patient was put into flexion past 90 degrees. We did this slowly over time, so she would be able to tolerate it. After reaching approximately 95 degrees plus she was not having any undue pain. I then gently applied gentle pressure to each Hemovac tubing and was able to remove the Hemovac drain without much difficulty. After the drains were removed I inspected both drains and found the customary 7 holes in each drain tubing which we cut on purpose to make sure all the drain is there. Also on inspection, I noted one of the drains was flattened where it had apparently been trapped in the joint. ASSESSMENT: Postop day #1 status post left total knee arthroplasty with difficult drain removal. PLAN: At this point, the drain is out and is intact. Plans are for her to be discharged by Mr. Adkins today and she can follow up in the office as normal. JOHANNA
[2016-08-29] MEDS ORDERED: POLYETHYLENE (MIRALAX) 17 GM PACK PO STA (09:21)
--- NOTE | 2016-08-29 09:30 | Progress Note ---
Medicine Progress Note Date & Time of Visit: Aug 29, 2016 at 09:20. (Zoraida Vazquez PA-C) Subjective Patient seen and examined. Her drain was removed this morning by ortho provider. She currently rates L knee pain 08/29. She did receive pain medication and has an ice pack in place. She is tolerating PO. She has participated in PT. No BM yet postoperatively but passing flatus. She denies dizziness, chest pain, SOB, N/V, calf pain. She is planned for d/c by ortho today. (Zoraida Vazquez PA-C) Patient continues to do very well. Tolerable pain. No BM yet. No other new change or complaint. (Trevor Benito MD) Objective Last 8 Hrs Date Time Temp Pulse Resp B/P Pulse Ox O2 Delivery O2 Flow Rate FiO2 08/29/16 08:37 Room Air 08/29/16 08:04 36.6 73 16 126/70 97 Room Air 08/29/16 07:20 Room Air 08/29/16 06:22 36.6 65 16 111/69 96 Room Air Physical Exam: General-pleasant alert 56 year old female, sitting up in bed, no distress Eyes-anicteric ENT-hearing intact Neck-supple, trachea midline Lungs-CTA bilaterally, no respiratory distress Heart-RRR, no murmur Abdomen-soft, nontender, normal bowel sounds Extremities-s/p left TKA, dressing/ ice pack in place, no calf tenderness Neuro-alert, oriented x 3, affect normal, grossly nonfocal Laboratory Results: Last 24 Hours Test 08/29/16 05:06 White Blood Count 6.01 K/uL Red Blood Count 3.29 M/uL Hemoglobin 9.7 g/dL Hematocrit 29.1 % Mean Corpuscular Volume 88.4 fL Mean Corpuscular Hemoglobin 29.5 pg Mean Corpuscular Hemoglobin Concent 33.3 g/dl RDW Standard Deviation 41.8 fL RDW Coefficient of Variation 13.0 % Platelet Count 215 K/uL Mean Platelet Volume 9.5 fL (Zoraida Vazquez PA-C) Assessment & Plan L KNEE DJD S/P L TKA POD #[address] Keller Doing well postoperatively Pain control, wound care, and activity per ortho H/H trended for acute blood loss (Hg 13.3 -> 10.3 -> 9.7) Continue use of incentive spirometry On bowel regimen of colace and Senokot- will add a dose of Miralax this morning Being discharged today as per ortho DEPRESSION Continue Lamictal and Celexa DVT PROPHYLAXIS Per ortho DISPO To be discharged today as per ortho Patient seen in collaboration with Dr. Benito. Please see his addendum. Thank you for this consultation. We will follow the patient with you during their hospital stay. You can reach a member of the [facility] Hospitalist Team 12/01 via pager @ . Current Inpatient Medications: Current Inpatient Medications Medications (Trade) Dose Ordered Sig/Jem Route Start Time Stop Time Status Last Admin Dose Admin Citalopram Hydrobromide (celeXA TAB) 40 mg QAM PO 08/28/16 09:00 09/27/16 08:59 08/29/16 07:56 40 MG Lamotrigine (Lamictal Tab) 100 mg QAM PO 08/28/16 09:00 09/27/16 08:59 08/29/16 07:56 100 MG Morphine Sulfate (MoRPHine SULFATE INJ) 2 mg Q4HWA PRN IV 08/27/16 11:45 09/10/16 11:44 Oxycodone HCl (Roxicodone Immediate Rel Tab) 1 TABLET FOR PAIN RATING... Q4H PRN PO 08/27/16 11:45 09/10/16 11:44 08/29/16 05:42 10 MG Oxycodone HCl (Oxycontin Tab) 10 mg Q12 PO 08/27/16 21:00 09/10/16 20:59 08/29/16 07:59 10 MG Acetaminophen (Tylenol Tab) 1,000 mg Q8 PO 08/27/16 14:00 09/26/16 11:44 08/29/16 05:40 1,000 MG Magnesium Hydroxide (Milk Of Magnesia Susp) 30 ml Q6H PRN PO 08/27/16 11:45 09/26/16 11:44 Bisacodyl (Dulcolax Supp) 10 mg DAILY PRN [place] 08/27/16 11:45 09/26/16 11:44 Senna (Senokot Tab) 17.2 mg HS PO 08/27/16 21:00 4/7/17 20:59 08/28/16 20:56 17.2 MG Docusate Sodium (coLACE CAP) 100 mg BID PO 08/27/16 21:00 09/26/16 20:59 08/29/16 07:56 100 MG Diphenhydramine HCl (Benadryl Inj) 25 mg Q8H PRN IV 08/27/16 11:45 09/26/16 11:44 Al Hydrox/Mg Hydrox/Simethicone (Maalox Max Susp) 15 ml Q4H PRN PO 08/27/16 11:45 09/26/16 11:44 Zolpidem Tartrate (Ambien Tab) 5 mg HSZ PRN PO 08/27/16 11:45 09/26/16 11:44 Multivitamins (Multivitamin Tab) 1 tab QAM PO 08/28/16 09:00 09/27/16 08:59 08/29/16 07:56 1 TAB Ondansetron HCl (Zofran Inj) 4 mg Q6H PRN IV 08/27/16 11:45 09/26/16 11:44 Ferrous Gluconate (Ferrous Gluconate Tab) 324 mg TIDM PO 08/27/16 12:00 09/26/16 11:59 08/29/16 07:56 324 MG Pantoprazole Sodium (Protonix Tab) 40 mg QAM PO 08/28/16 09:00 09/27/16 08:59 08/29/16 07:56 40 MG Aspirin (Ecotrin Tab) 81 mg BID PO 08/27/16 21:00 09/26/16 20:59 08/29/16 07:56 81 MG Morphine Sulfate (MoRPHine SULFATE INJ) 4 mg Q4HWA PRN IV 08/27/16 13:45 09/10/16 13:44 Morphine Sulfate (MoRPHine SULFATE INJ) 6 mg Q4HWA PRN IV 08/27/16 13:45 09/10/16 13:44 (Zoraida Vazquez PA-C) Patient is clinically stable. No clinically significant drop in H/H. Medical conditions are stable. Discharge planning as per Surgical team. Trevor Benito MD (Trevor Benito MD)
[2016-08-29 10:23] VITALS: BP 126/70; PULSE 73; TEMP 36.6; O2SAT 97
[2016-08-29] MEDS ORDERED: BISACODYL 10 MG SUPP PR ONE (11:00)
--- NOTE | 2016-09-11 10:39 | DISCHARGE SUMMARY ---
HISTORY OF PRESENT ILLNESS: A 56-year-old female patient of Dr. Keller'angie complaining of chronic left knee pain, longstanding, progressively getting worse. The patient has been diagnosed with end-stage osteoarthritis per clinical and radiographic exams. She has failed conservative treatment and wished to proceed with total knee arthroplasty. POSTOPERATIVE COURSE: The patient underwent a left total knee replacement on 08/27/2016. She was followed closely with medical consultation, DVT prophylaxis in the form of aspirin, pain control and her preadmission medications and physical therapy. The patient did very well postoperatively and was discharged home on postoperative day #2. PHYSICAL EXAMINATION: On discharge left knee Silverlon dressing was clean, dry and intact. There was no redness or drainage. She had no calf tenderness. Negative Homans sign. Neurologically and neurovascularly she was intact in her left lower extremity. DIAGNOSIS: Status post left total knee arthroplasty with a history of osteoarthritis only. PLAN: The patient was discharged home with home health services. She will continue her preadmission medications with the addition of pain medications. She will continue aspirin twice daily for a total of 1 month for DVT prophylaxis. She will follow up as an outpatient as scheduled.
== END 2016-08-29 11:07 | disposition home health service (06) | DRG 470 ==
LOC: ENRESERVTM → ENRESERVDT → C.ACU 06:26 → C.3E 06:58
PROVIDERS: ADMIT Orthopaedic Surgery Sports Medicine; ATTEND Orthopaedic Surgery Sports Medicine
PROC: 0SRD0J9 Replacement of Left Knee Joint with Synthetic Substitute, Cemented, Open Approach (ICD-10-PCS; principal; 2016-08-27 09:30)
DX: M17.12 Unilateral primary osteoarthritis, left knee (principal); D62 Acute posthemorrhagic anemia; G89.29 Other chronic pain; Z79.899 Other long term (current) drug therapy; Z98.51 Tubal ligation status; Z96.651 Presence of right artificial knee joint; Z98.1 Arthrodesis status; F32.9 Major depressive disorder, single episode, unspecified

== ENCOUNTER 2017-08-08 19:18 | Emergency (ER) | payer OTHER ==
[~2017-08-08] VITALS: Ht 157.5 cm; Wt 86.9 kg
[~2017-08-08 19:18] MED LIST changes: +ACET-1138 PO; -ACETAMINOPHEN 500 MG TAB PO SCH; +ASPEC81 PO; -CEFAZOLIN 1000MG/55 ML D5W 55 ML IV SCH; -CeleBREX 200 MG CAP PO SCH; -DEXAMETHASONE 4 MG TAB PO SCH; -FAMOTIDINE 20 MG TAB PO SCH; -GABAPENTIN 300 MG CAP PO SCH; -LACTATED RINGER'S 1000ML 1,000 ML IV SCH; -LACTATED RINGER'S 1000ML 500 ML IV ONE; -LACTATED RINGER'S 1000ML IV SCH; -METOCLOPRAMIDE HCL 10 MG TAB PO SCH; +OXYSR10 PO; -ROPIVACAINE 5MG/ML 30 ML 150 MG, BUPIVACAINE/EPINEPHR 0.5% MPF 30 ML, KETOROLAC TROMETH... INFIL SCH; +RXC5 PO
[2017-08-08 19:24] VITALS: TEMP 36.7; Ht 157.5 cm; Wt 86.9 kg
[2017-08-08] MEDS ORDERED: DEXAMETHASONE SOD INJ 4 MG/ML VIAL IM STA (20:11)
[2017-08-08] MEDS ORDERED: OXYCODONE HCL IR 5 MG TAB (IMMEDIATE RELEASE) PO STA (20:11)
[2017-08-08] MEDS ORDERED: KETOROLAC TROMETHAMINE 60 MG/2 ML VIAL IM STA (20:11)
--- NOTE | 2017-08-08 21:30 | EMERGENCY ROOM VISIT NOTE ---
History Report prepared by Swetha: Kareen Ahuja Under the Supervision of: Dr. Chan Avila D.O. First contact with patient: 20:03 Chief Complaint: BACK PAIN Stated Complaint: NERVE PAIN IN LOWER BACK/FEET History of Present Illness The patient is a 56 year old female who presents to the Emergency Room with complaints of worsening back pain starting 2 days ago. The pain is in her lower back and radiates down both of her legs. She has not had this pain before. She denies any injury. She has tried taking Aleve and muscle relaxers to no significant relief. She notes that she has not had a bowel movement in the past 2 days. She normally has up to 3 bowel movements a day. She tried an enema at home to no result. 2 days ago she had a slight fever and felt achy. She denies any urinary symptoms, abdominal pain, rash, leg numbness, or leg weakness. The patient has a history of back problems. She has had MRIs in the past. She has had lower back surgery. Source of History: patient Onset: 2 days ago Position: back (lower) Quality: other (pain) Timing: worsening Associated Symptoms: + fevers, No abdominal pain, No urinary symptoms, No weakness, No numbness, No rash Note: Pt reports constipation. Review of Systems See HPI for pertinent positives & negatives. A total of 10 systems reviewed and were otherwise negative. Past Medical & Surgical Medical Problems: (1) Depression (2) Left knee DJD Surgical Problems: (1) History of back surgery (2) History of carpal tunnel surgery (3) History of section (4) History of tubal ligation (5) Hx of repair of rotator cuff (6) Hx of total knee arthroplasty Family History Diabetes mellitus Heart disease Social History Smoking Status: Former Smoker Drug Use: none Marital Status: Housing Status: lives with family Occupation Status: employed Current/Historical Medications Scheduled Citalopram Hydrobromide (Celexa), 40 MG PO QAM Lamotrigine (Lamictal), 100 MG PO QAM Omeprazole (Prilosec), 20 MG PO DAILY Prednisone (Prednisone Tab), 40 MG PO DAILY Scheduled PRN Oxycodone Immediate Rel Tab (Roxicodone Ir), 1-2 TAB PO Q4H PRN for Severe Pain Allergies Coded Allergies: No Known Allergies (Unverified , 08/08/17) Physical Exam Vital Signs Date Time Temp Pulse Resp B/P (MAP) Pulse Ox O2 Delivery O2 Flow Rate FiO2 08/08/17 23:32 80 18 121/66 98 08/08/17 19:24 36.7 111 16 118/69 95 Room Air Physical Exam GENERAL: Patient is awake, alert, very anxious appearing and appears to be uncomfortable. EYES: The conjunctivae are clear. The pupils are round and reactive. EARS, NOSE, MOUTH AND THROAT: The nose is without any evidence of any deformity. Mucous membranes are moist tongue is midline NECK: The neck is nontender and supple. RESPIRATORY: Normal respiratory effort is noted there is no evidence of wheezing rhonchi or rales CARDIOVASCULAR: Regular rate and rhythm noted there no murmurs rubs or gallops normal S1 normal S2 GASTROINTESTINAL: The abdomen is soft. Bowel sounds are present in all quadrants. Abdomen is nontender BACK: Significant lumbar tenderness to percussion. ROM limited secondary to pain. There was a surgical scar noted. MUSCULOSKELETAL/EXTREMITIES: There is no evidence of gross deformity full range of motion is noted in the hips and shoulders SKIN: There is no obvious evidence of any rash. There are no petechiae, pallor or cyanosis noted. NEUROLOGIC: Patient is awake alert and oriented x3 strength is symmetric patellar reflexes are 2+ bilaterally. Achilles tendon reflexes 1+ bilaterally, great toe raise was symmetric. Medical Decision & Procedures ER Provider Diagnostic Interpretation: Radiology results as stated below per my review and radiologist interpretation: MRI OF THE LUMBAR SPINE WITHOUT CONTRAST CLINICAL HISTORY: Low back pain radiating into right lower extremity. No recent trauma. COMPARISON STUDY: No previous studies for comparison. TECHNIQUE: Utilizing a 1.5 Maddison magnet and dedicated coil, multiplanar, multiecho imaging of the lumbar spine was performed without IV contrast. FINDINGS: For purposes of numbering on this exam, the L5-S1 disc space is assigned to axial image 23 of 25. There is made of a posterior decompression with bilateral pedicle screw fusion at L5 and S1. Note is made of 9 mm anterolisthesis of L5 on S1. There is complete loss of the L5-S1 disc space which suggests a fusion. No intracanalicular mass or fluid collection is present. Conus terminates at the mid L1 level. Paravertebral soft tissues are unremarkable. There is no suspicious marrow replacement. There is no evidence for fracture. L1-2: The central canal and neural foramen are patent. L2-3: There is mild disc bulge. The central canal is patent. There is mild facet arthrosis. The neural foramen are patent. L3-4: There is mild disc space narrowing. There is mild disc bulge. There is moderate facet arthrosis. Central canal and neural foramen are patent. L4-5: Central canal is patent. There is mild narrowing of the right neural foramen. L5-S1: Evaluation is suboptimal given artifact from the hardware. There is no central canal stenosis. There is no definite neural foraminal stenosis. IMPRESSION: 1. Status post L5-S1 fusion and posterior decompression. 2. Grade I anterolisthesis of L5 on S1. 3. No central canal stenosis. 4. Mild multilevel neural foraminal stenosis, as described above. Electronically signed by: Jose Alberto Vu M.D. 08/08/2017 10:55 PM Dictated Date/Time: 08/08/2017 10:48 PM Medications Administered Medications (Trade) Dose Ordered Sig/Jem Route Start Time Stop Time Status Last Admin Dose Admin Oxycodone HCl (Roxicodone Immediate Rel Tab) 10 mg NOW STAT PO 08/08/17 20:11 08/08/17 20:13 DC 08/08/17 20:22 10 MG Dexamethasone Sodium Phosphate (Decadron Inj) 10 mg NOW STAT IM 08/08/17 20:11 08/08/17 20:13 DC 08/08/17 20:26 10 MG Ketorolac Tromethamine (Toradol Inj) 60 mg NOW STAT IM 08/08/17 20:11 08/08/17 20:13 DC 08/08/17 20:26 60 MG Oxycodone HCl (Roxicodone Immediate Rel 5MG Home Pack) 1 homepack UD ONCE PO 08/08/17 23:15 08/08/17 23:16 DC 08/08/17 23:15 1 HOMEPACK ED Course 2007: The patient was evaluated in room B4B. A complete history and physical examination were performed. 2010: Toradol Inj 60 mg IM, Decadron Inj 10 mg IM, Oxycodone HCl 10 mg PO. 2315: Oxycodone HCl 1 homepack PO. 2320: Upon reevaluation, the patient is resting comfortably. I discussed the results and treatment plan with her. She verbalized agreement of the treatment plan. She was discharged home. Medical Decision Prior records/ancillary studies reviewed. Triage Nursing notes reviewed. The patient's history was concerning for back pain. Differential diagnosis: Etiologies such as musculoskeletal, disc herniation, fracture, aortic disease, metastatic disease, cord compression, discitis, infection, renal colic, gastrointestinal, acute exacerbation of chronic back pain, sciatica, cauda equina, as well as others were entertained. The patient is a 56-year-old female who presented to the emergency department for an evaluation of low back pain. The patient was having significant trouble getting comfortable. She has pain which radiates to both legs. She has had a similar episode in the past and has had lumbar spine surgery. The patient had a good exam with reflexes but has significant back pain. Given her history MRI was obtained. I discussed the patient's radiographic studies with her. She was treated with pain medication as well as steroids in the emergency department. On subsequent reevaluation she was feeling much better and was able to lie comfortably in the bed. She was encouraged to rest and avoid any strenuous activity. She was also encouraged to continue all medications as prescribed and return to the emergency department immediately if symptoms change worsen or the need arises. Medication Reconcilliation Current Medication List: was personally reviewed by me Blood Pressure Screening Patient's blood pressure: Normal blood pressure Blood pressure disposition: Did not require urgent referral Impression Primary Impression: Lumbar radiculopathy Additional Impression: Low back pain Scribe Attestation The scribe's documentation has been prepared under my direction and personally reviewed by me in its entirety. I confirm that the note above accurately reflects all work, treatment, procedures, and medical decision making performed by me. Departure Information Dispostion Home / Self-Care Prescriptions Omeprazole (PRILOSEC) 20 Mg Cap 20 MG PO DAILY, #30 CAP Prov: Chan Avila, DO 08/08/17 Oxycodone Immediate Rel Tab (ROXICODONE IR) 5 Mg Tab 1-2 TAB PO Q4H Y for Severe Pain, #24 TAB Prov: Chan Avila, DO 08/08/17 Prednisone (Prednisone Tab) 20 Mg Tab 40 MG PO DAILY, #10 TAB Prov: Chan Avila, DO 08/08/17 Referrals Sharon Romano M.D. (PCP) Forms HOME CARE DOCUMENTATION FORM, IMPORTANT VISIT INFORMATION Patient Instructions Lumbar Radiculopathy, [facility] [email or web address] Additional Instructions Rest and avoid any strenuous activity. Continue all medications as prescribed. Continue using Motrin and Tylenol as directed for mild pain. Call your family doctor as well as her primary orthopedic doctor to schedule follow-up appointments. Return to the emergency department if symptoms worsen or if need arises. Problem Qualifiers Additional Impression: Low back pain Chronicity: acute Back pain laterality: bilateral Sciatica presence: with sciatica Sciatica laterality: sciatica laterality unspecified Qualified Codes : M54.40 - Lumbago with sciatica, unspecified side
--- NOTE | 2017-08-08 22:56 | DIAGNOSTIC IMAGING REPORT ---
MRI OF THE LUMBAR SPINE WITHOUT CONTRAST CLINICAL HISTORY: Low back pain radiating into right lower extremity. No recent trauma. COMPARISON STUDY: No previous studies for comparison. TECHNIQUE: Utilizing a 1.5 Maddison magnet and dedicated coil, multiplanar, multiecho imaging of the lumbar spine was performed without IV contrast. FINDINGS: For purposes of numbering on this exam, the L5-S1 disc space is assigned to axial image 23 of 25. There is made of a posterior decompression with bilateral pedicle screw fusion at L5 and S1. Note is made of 9 mm anterolisthesis of L5 on S1. There is complete loss of the L5-S1 disc space which suggests a fusion. No intracanalicular mass or fluid collection is present. Conus terminates at the mid L1 level. Paravertebral soft tissues are unremarkable. There is no suspicious marrow replacement. There is no evidence for fracture. L1-2: The central canal and neural foramen are patent. L2-3: There is mild disc bulge. The central canal is patent. There is mild facet arthrosis. The neural foramen are patent. L3-4: There is mild disc space narrowing. There is mild disc bulge. There is moderate facet arthrosis. Central canal and neural foramen are patent. L4-5: Central canal is patent. There is mild narrowing of the right neural foramen. L5-S1: Evaluation is suboptimal given artifact from the hardware. There is no central canal stenosis. There is no definite neural foraminal stenosis. IMPRESSION: 1. Status post L5-S1 fusion and posterior decompression. 2. Grade I anterolisthesis of L5 on S1. 3. No central canal stenosis. 4. Mild multilevel neural foraminal stenosis, as described above. Electronically signed by: Jose Alberto Vu M.D. 08/08/2017 10:55 PM Dictated Date/Time: 08/08/2017 10:48 PM
[2017-08-08] MEDS ORDERED: OXYC1TAB3 PO (23:04)
[2017-08-08] MEDS ORDERED: PRED20TA2 PO (23:04)
[2017-08-08] MEDS ORDERED: OMEP20CA9 PO (23:04)
[2017-08-08] MEDS ORDERED: OXYCODONE IR HOME PACK PO ONE (23:15)
[2017-08-08 23:32] VITALS: BP 121/66; PULSE 80; O2SAT 98
== END 2017-08-08 23:34 | disposition home or self-care (01) ==
LOC: C.EDB 19:20
DX: M54.41 Lumbago with sciatica, right side (principal); M54.42 Lumbago with sciatica, left side; Z87.39 Personal history of other diseases of the musculoskeletal system and connective tissue; Z87.891 Personal history of nicotine dependence; Z83.3 Family history of diabetes mellitus; Z82.49 Family history of ischemic heart disease and other diseases of the circulatory system